=== PATIENT | male | born 1990 | race Caucasian/White ===

== ENCOUNTER → 2018-03-18 11:08 | Outpatient (CLI) | payer OTHER, SELFPAY ==
[2018-03-12 09:47] VITALS: TEMP 36.6
--- NOTE | 2018-03-18 11:10 | DI.RAD.S_ITS ---
PROCEDURE: FL BARIUM SWALLOW INDICATIONS: Dysphagia COMPARISON: None. FINDINGS: Function: There is normal esophageal peristalsis. No elicited gastroesophageal reflux. There is normal transit of a calibrated barium tablet through the esophagus into the stomach. Morphology: Air-contrast images demonstrate normal mucosal morphology. Single contrast views show no esophageal strictures, extrinsic mass effects, or diverticula. Limited images of the stomach demonstrate normal appearance. IMPRESSION: Normal esophagram. Dictated by: Chidi Hernandez M.D. on 03/18/2018 at 12:05 Approved by: Chidi Hernandez M.D. on 03/18/2018 at 12:05
== END ==
PROVIDERS: Family Provider Physician Assistant; PCP Physician Assistant; Visit Provider Physician Assistant
DX: R13.10 Dysphagia, unspecified (principal)
CPT/HCPCS: 74220

== ENCOUNTER → 2018-04-24 11:02 | Outpatient (CLI) | payer OTHER, SELFPAY ==
--- NOTE | 2018-04-24 | DI.CT.S_ITS ---
PROCEDURE: CT LE RT WO CON INDICATIONS: RIGHT ANKLE FOLLOW UP TECHNIQUE: Noncontrast 1-1.5 mm axial sections acquired from above the tibiotalar joint to the bottom of the calcaneus, with coronal and sagittal reformats. COMPARISON: None. FINDINGS: Image quality: Excellent. Bones: No acute fracture, dislocation, or suspicious osseous lesion involving the osseous structures of the midfoot or hindfoot. Ankle mortise is well-maintained. However, there is a moderate-sized osteochondral defect that measures approximately 5 mm in transverse dimension by 10 mm in AP dimension. A small fragment is identified within the region of this defect. Ankle mortise is well-maintained. There are mild degenerative changes of the tibiotalar joint. There are moderate degenerative changes involving the middle subtalar and talonavicular joints. There is a peripheral calcified structure identified along the medial border of the talus, which measures approximately 18 x 8 x 17 mm. An additional calcified structure is noted along the inferior margin of the middle subtalar joint, which probably is related to previous injury. Soft tissues: The overlying soft tissues are within normal limits with the exception of moderate soft tissue edema about the medial aspect of the ankle. No soft tissue masses or loculated fluid collections are present. No definite joint effusions are identified. Please note that the ligamentous, tendinous, and cartilaginous structures are not adequately evaluated on CT. However, there is mild prominence of the tibialis posterior tendon within the region of the distal talus. IMPRESSION: 1. Large peripherally calcified structure along the medial border of the talus is probably related to previous ligamentous or soft tissue injury. This likely correlates with the patient's palpable abnormality. 2. 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 3. 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 4. Mild degenerative changes of the tibiotalar joint with an associated moderate-sized osteochondral defect. Dictated by: Severino Thurston M.D. on 04/24/2018 at 13:16 Approved by: Severino Thurston M.D. on 04/24/2018 at 13:31
== END ==
PROVIDERS: Family Provider Physician Assistant; PCP Physician Assistant; Visit Provider Orthopaedic Surgery Foot and Ankle Surgery
DX: M19.071 Primary osteoarthritis, right ankle and foot (principal)
CPT/HCPCS: 73700